=== PATIENT | male | born 1965 | race Caucasian/White ===

== ENCOUNTER 2021-08-07 15:31 | Emergency (ER) | payer BC ==
[~2021-08-07] VITALS: Ht 175.3 cm; Wt 100.0 kg
[~2021-08-07 15:31] MED LIST: PRAVACHOL 40MG40 MG PO; PRIL40 PO; PRINIVIL10 MG PO
[2021-08-07 15:54] VITALS: BP 141/91; PULSE 85; TEMP 98.6
[2021-08-07 16:04] LABS: COLLECTION METHOD CLEAN CATCH
[2021-08-07 16:15] LABS: MUCOUS Present /lpf; PH 5 (5-8); SQUAMOUS EPITHELIAL 0-2 /hpf; URINE APPEARANCE Hazy; URINE BACTERIA None Seen /hpf; URINE BILIRUBIN Negative (NEGATIVE); URINE BLOOD 3+ (NEGATIVE); URINE COLOR Yellow; URINE GLUCOSE Negative (NEGATIVE); URINE KETONE Negative (NEGATIVE); URINE LEUKOCYTE ESTERASE Negative (NEGATIVE); URINE NITRATE Negative (NEGATIVE); URINE PROTEIN(semi-quant) 2+ (NEGATIVE); URINE RBC >50 /hpf; URINE UROBILINOGEN Negative (NEGATIVE)
[2021-08-07 17:34] LABS: BASO # 0.1 (0.0-0.2); BASO % 0.6 % (0.0-2.0); EOS # 0.1 (0.0-0.7); EOS % 0.9 % (0-4.0); GRAN # 6.9 (1.4-6.5); GRAN % 74.5 % (42.2-75.2); HEMATOCRIT 45.5 % (42.0-52.0); HEMOGLOBIN 14.6 g/dl (13.5-18.0); LYMPH # 1.6 (1.2-3.4); LYMPH % 17.3 % (20.0-51.0); MEAN CELL VOLUME 84 fl (80.0-100.0); MEAN CORPUSCULAR HEMOGLOBIN 27 pg (27.0-31.0); MEAN CORPUSCULAR HGB CONC 32 g/dl (33.0-37.0); MEAN PLATELET VOLUME 9.5 fl (7.4-10.4); MONO # 0.6 (0.1-0.6); MONO % 6.5 % (1.7-9.3); PLATELET COUNT 212 K/mm3 (130-400); REDCELL DISTRIBUTION WIDTH-CV 13.5 % (11.5-14.5)
[2021-08-07 17:55] LABS: ALANINE AMINOTRANSFERASE 52 U/L (4-49); ALBUMIN 4.5 gm/dL (3.5-5.0); ALKALINE PHOSPHATASE 81 U/L (50-136); ANION GAP 9 mmol/L (7-16); AST,SGOT 41 U/L (15-37); BILIRUBIN,TOTAL 0.6 mg/dL (0.0-1.0); BLOOD UREA NITROGEN 25 mg/dL (9-20); CALCIUM 9.7 mg/dL (8.4-10.2); CARBON DIOXIDE 24 mmol/L (22-30); CHLORIDE 110 mmol/L (98-107); CREATININE, serum 1.07 (0.66-1.25); GLUCOSE 111 mg/dL (74-106); POTASSIUM 4.5 mmol/L (3.4-5.0); SODIUM 144 mmol/L (137-145); TOTAL PROTEIN 8.6 gm/dL (6.4-8.2)
[2021-08-07 17:56] LABS: C-REACTIVE PROTEIN < 0.5 mg/dL (0.0-0.9)
== END 2021-08-07 18:26 | disposition home or self-care (01) ==
LOC: COL.ER 15:31
PROVIDERS: Emergency Medicine; Nurse Practitioner Primary Care
DX: R31.9 Hematuria, unspecified (principal); Z87.442 Personal history of urinary calculi
CPT/HCPCS: J1885; J7030; Q9967